=== PATIENT | female | born 1965 | race Caucasian/White ===

== ENCOUNTER → 2023-07-09 12:14 | Outpatient (CLI) | payer OTHER, SELFPAY ==
--- NOTE | 2023-07-09 12:18 | DI.US.S_ITS ---
PROCEDURE: US PELVIC COMPLETE INDICATIONS: DUB TECHNIQUE: Real-time scanning was performed of the pelvic organs, with image documentation. Additional endovaginal scanning was necessary due to incomplete visualization of the adnexal and endometrial structures by transabdominal scanning. COMPARISON: None. FINDINGS: Uterus: Uterus is anteverted and normal in size at 7.4 x 4.1 x 4.7 cm. The myometrium is homogeneous. The endometrium measures 15 mm combined thickness. Ovaries: The right ovary measures 1.6 x 1.9 x 1.0 cm, with a calculated ovarian volume of 1.6 cc. The left ovary measures 2.7 x 2.7 x 2.5 cm, with a calculated ovarian volume of 10 cc. Simple left ovarian cyst without internal complexity measuring 2.4 centimeters. Right paraovarian cyst measuring 1.3 centimeters, without internal complexity. Other: No pathologic free abdominal or pelvic fluid. IMPRESSION: Endometrium measures 15 millimeters in combined thickness, which is abnormal in a postmenopausal female. Consider tissue sampling. Bilateral simple adnexal cysts. O-RADS 2. We strive to produce accurate, complete, and clear reports of imaging services. To assist us in improving patient care, this report was composed using standard report templates and voice recognition software. Therefore, it may contain abnormal punctuation, insertions and/or omissions. Occasional wrong-word or sound-alike substitutions may occur. Though we review the report and make efforts to correct it, we do recommend that the report be read carefully in proper context to recognize any text inaccuracies. Dictated by: Sorin Gtz M.D. on 07/09/2023 at 13:07 Approved by: Sorin Gtz M.D. on 07/09/2023 at 13:09
== END ==
PROVIDERS: Referring Provider Student in an Organized Health Care Education/Training Program; Visit Provider Student in an Organized Health Care Education/Training Program
DX: N92.6 Irregular menstruation, unspecified (principal); N83.292 Other ovarian cyst, left side; N83.201 Unspecified ovarian cyst, right side; R93.89 Abnormal findings on diagnostic imaging of other specified body structures
CPT/HCPCS: 76830; 76856

== ENCOUNTER → 2023-07-11 15:02 | Outpatient (CLI) | payer OTHER, SELFPAY ==
[2023-07-11 16:15] LABS: Follicle Stimulating Hormone 37.9 mIU/mL
[2023-07-11 16:30] LABS: Estradiol, Total 22.3 pg/mL
== END ==
PROVIDERS: Referring Provider Obstetrics & Gynecology; Visit Provider Obstetrics & Gynecology
DX: N95.1 Menopausal and female climacteric states (principal)
CPT/HCPCS: 36415; 82670; 83001

== ENCOUNTER 2023-07-16 10:07 | Day surgery (SDC) | payer OTHER, SELFPAY ==
[2023-07-16] VITALS (10 sets, daily range): BP systolic 126–177; BP diastolic 72–86; PULSE 70–116; RESP 8–16; TEMP 36.2–36.6; O2SAT 93–100; BMI 32.2
--- NOTE | 2023-07-16 | PATH_ITS ---
[facility] Accession Number: [id number] No. of containers..02 Tissue . 01 Material submitted: . PART A: endometrium - ENDOMETRIAL CURETTINGS PART B: endocervix - ENDOCERVICAL CURETTINGS . 01 Diagnosis: A. Endometrium, Curettage: Disordered proliferative endometrium with evidence of breakdown/shedding, and eosinophilic/tubal metaplasia. Background with polypoid fragments of benign upper endocervical mucosa/lower uterine segment endometrium. No evidence of endometrial intraepithelial neoplasia or malignancy. . B. Endocervix, Curettage: Fragments of polypoid benign endocervical mucosa. MRV 07/24/2023 1556 Local . 01 Electronically signed: . Kiya Portillo MD, Pathologist NPI- [id number] . 01 Gross description: . Part A: ENDOMETRIAL CURETTINGS: Received in formalin are minute fragments of mucoid and hemorrhagic material measuring 1.5 x 1.5 x 0.4 cm in aggregate. Submitted in toto in 1 cassette. Part B: ENDOCERVICAL CURETTINGS: Received in formalin are minute fragments of mucoid and hemorrhagic material measuring 0.4 x 0.4 x 0.1 cm in aggregate. Submitted in toto in 1 cassette. /LISETTE 07/17/2023 1850 Local . 01 Pathologist provided ICD-10: N93.9 . 01 CPT . 918268, [id number] Specimen Comment: A courtesy copy of this report has been sent to [phone] Performed at: 01 [facility] [address] [place] [address] [address] [facility], [place], [place] [id number] MD Adrien Chau MD Phone: [phone]
[2023-07-16] MEDS: ACETAMINOPHEN 325 MG TABLET 975 MG PO (11:19)
[2023-07-16] MEDS: LACTATED RINGERS 1,000 ML 42 ML IV ×2 (11:19→13:07)
--- NOTE | 2023-07-16 11:24 | SUR.OPER ---
Lithotomy on padded OR bed, head on pillow, arms secured on padded arm boards at <90 degrees abduction. Legs secured in padded yellow fins stirrups.
--- NOTE | 2023-07-16 11:47 | PM.PREOP ---
Pre-operative Note COVID-19 COVID-19 status: Not tested Interval Note History & Physical reviewed/Exam performed by Physician: Yes Changes to H&P: No
[2023-07-16] MEDS: SILVER NITRATE STICK 1 EACH TOP (12:19)
--- NOTE | 2023-07-16 12:27 | PM.GYNOP.1 ---
Operative Date/Time/Diagnoses Date of procedure: 07/16/23 Time of procedure: 12:05 Pre-op diagnosis: Postmenopausal bleeding Endometrial thickening on ultrasound Cervical stenosis Post-op diagnosis: same Procedure & Clinicians Procedure: Procedures Operation Date: 07/16/23 11:45 Actual Procedure Side Surgeon p Hysteroscopy, D&C of the uterus Mike Celis MD Indications: Dodie is a 57-year-old , who presents with a 2 month history of abnormal uterine bleeding. She experienced menarche at age 14 and had regular predictable periods up until her late 20s at which time she was placed on Depo-Provera for the next 10 years. 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 In the fall of 2020, the patient's menses really spaced out with menses occurring only every 5 months until May 2023 when she started bleeding and continued to bleed intermittently until about a week ago. She is not bleeding currently. At no time has she been amenorrheic for a period of 12 months or more. She also denies any intermenstrual bleeding or postcoital bleeding. Family history is negative for ovarian or breast cancer. Patient had vasomotor symptoms in her early 40s along with night sweats but both of those have subsided since about age 52. In addition the patient relates progressive discomfort with intercourse associated with a sense of dryness and sensation of rawness during intercourse. A recent pelvic ultrasound performed 07/09/2023 shows: FINDINGS: Uterus: Uterus is anteverted and normal in size at 7.4 x 4.1 x 4.7 cm. The myometrium is homogeneous. The endometrium measures 15 mm combined thickness. Ovaries: The right ovary measures 1.6 x 1.9 x 1.0 cm, with a calculated ovarian volume of 1.6 cc. The left ovary measures 2.7 x 2.7 x 2.5 cm, with a calculated ovarian volume of 10 cc. Simple left ovarian cyst without internal complexity measuring 2.4 centimeters. Right paraovarian cyst measuring 1.3 centimeters, without internal complexity. Other: No pathologic free abdominal or pelvic fluid. IMPRESSION: Endometrium measures 15 millimeters in combined thickness, which is abnormal in a postmenopausal female. Consider tissue sampling. Bilateral simple adnexal cysts. O-RADS 2. Surgeon: Mike Celis Anesthesia Type: General Operative Notes Findings: Unremarkable endometrial cavity w/o focal abnormalities noted. Closure Type: not applicable Specimen(s): endometrial curettings and other (Endocervical curettings) Estimated blood loss (mL): 15 Blood products transfused: none Procedure in detail: With the patient under general LMA in the modified dorsal lithotomy position, the perineum, vagina, and lower abdomen were prepped and draped in the usual fashion for hysteroscopy with endometrial ablation. A pre-surgical safety time-out was then taken in accordance with [facility] Main OR protocols. A bivalve speculum was inserted in the vagina and the cervix visualized. The anterior lip of the cervix was grasped with a single-tooth tenaculum and the endocervical canal was then dilated to 6 mm diameter. Hysteroscope was placed through the endocervical canal into the endometrial cavity and the cavity was visualized. There were no localized abnormalities within the endometrial cavity and the endometrium itself was unremarkable. Both tubal ostia were visualized. The hysteroscope was then withdrawn and a fractional dilation and curettage was accomplished with separate pathologic specimen submitted for the endometrial and endocervical curettings. The tenaculum was then removed from the anterior lip of the cervix and bleeding easily controlled with silver nitrate. The speculum was then removed from the vagina and the patient awakened from anesthesia. She was then transferred to the PACU for a period of observation and recovery having tolerated the procedure well. Complications: none Post-operative Condition: stable Disposition: PACU Plan for aftercare: Routine post-op care.
[2023-07-16] MEDS: HYDROMORPHONE 1 MG INJ IV (12:40)
[2023-07-16] MEDS: hydrOXYzine 50 MG/ML INJ 25 MG IM (12:41)
[2023-07-16] MEDS: ONDANSETRON 4 MG/2 ML INJ IV (12:41)
[2023-07-16] MEDS: OXYCODONE IR 5 MG TABLET PO (12:44)
== END 2023-07-16 13:30 | disposition home or self-care (01) ==
PROVIDERS: Referring Provider Obstetrics & Gynecology; Visit Provider Obstetrics & Gynecology
PROC: 0UDB8ZZ Extraction of Endometrium, Via Natural or Artificial Opening Endoscopic (ICD-10-PCS; CPT 58558; principal; 2023-07-16 11:45)
DX: N95.0 Postmenopausal bleeding (principal); N88.2 Stricture and stenosis of cervix uteri; N84.1 Polyp of cervix uteri
CPT/HCPCS: 58558; J1100; J1170; J1885; J2405; J2704; J3010; J3410